=== PATIENT | male | born 1975 | race Caucasian/White ===

== ENCOUNTER 2018-10-06 19:14 | Emergency (ER) | payer SELFPAY ==
[2018-10-06 19:56] LABS: MEAN CORPUSCULAR HEMOGLOBIN 15.8 pg (28.0-34.0)
[2018-10-06 19:57] LABS: BASOPHILS % 0.2 % (0.0-1.5); EOSINOPHILS % 1.1 % (0.0-6.8); MONOCYTES % 4.2 % (0.0-11.0); NEUTROPHILS # 5.1 # k/uL (1.4-7.7)
[2018-10-06 20:00] LABS: eGFR (Non-African) > 60
--- NOTE | 2018-10-06 20:01 | ED Physician Documentation ---
General Adult - HISTORIAN Historian: patient, spouse - HPI Stated Complaint: shortness of breath, "fluttering" in chest Chief Complaint: General Adult (SOA/Palpitations) Additional Information: Patient is a 43-year-old male that presents to the ER with c/o feeling weak, difficult catching his breath, and palpitations. He states that symptoms started around 1 p.m. this afternoon. Patient states this evening he was sitting at [employer] (restaurant) and he got really hot- palpitations increased and he felt like he couldn't catch his breath. He denies any chest pain, nausea, vomiting or diarrhea. He use to drink heavily but quit 3 years ago, he chews tobacco, no illegal drug use. Patient looks pale/jaundice- states color is not normal- he is alert and oriented x 3. Patient later admits to having blood in his stool x 1 week (bright red blood)- mom is a nurse and states that his color has been like that for approx. 6 mths. Patient states that he has been taking quite a bit of Ibuprofen and his Colchicine over the last couple of weeks. Onset: hours Timing: still present Severity: mild Modifying Factors: was taken off BP meds a couple of months ago Further Comments: no - ROS CONST: weakness EYES/ENT: none CVS/RESP: shortness of breath GI/: none. denies: abdominal pain, problems urinating, vomiting, nausea, diarrhea, black stools MS/SKIN/LYMPH: none NEURO/PSYCH: denies: headache, dizziness - PAST HX Past History: hypertension Other History: other (GERD, GOUT) Surgeries/Procedures: other (tonsils) Immunizations: UTD Allergies/Adverse Reactions: Allergies Allergy/AdvReac Type Severity Reaction Status Date / Time No Known Allergies Allergy Verified 10/06/18 19:41 Home Medications: Ambulatory Orders Medication Instructions Recorded Colchicine [Mitigare] 1 tab PO DAILY 10/06/18 Omeprazole Magnesium [Prilosec] 1 cap PO DAILY 10/06/18 - SOCIAL HX Smoking History: chew Alcohol Use: heavy (quit 3 years ago) Drug Use: none - FAMILY HX Family History: No - VITAL SIGNS Vital Signs: Vital Signs Temp Pulse Resp BP Pulse Ox 98.1 F 102 H 18 186/71 99 10/06/18 19:32 10/06/18 19:32 10/06/18 19:32 10/06/18 19:32 10/06/18 19:32 Progress - Progress Progress: 20:12 Called [facility] to arrange transfer- they will call back 20:28 Dr. Kevin accepted at [facility]- patient will be going to Step Down ED Results Lab/Radiology - Orders Orders: ED Orders Category Date Time Status Continuous EKG monitoring Q30M Care 10/06/18 19:29 Active Continuous Pulse Oximetry Q30M Care 10/06/18 19:[address] IV Lock 1T Care 10/06/18 19:29 Active CHEST 2VIEW [RAD] Stat Exams 10/06/18 Ordered CBC/PLATELET/DIFF Routine Lab 10/06/18 19:30 Received CKMB Stat Lab 10/06/18 19:30 Received CMP Routine Lab 10/06/18 19:30 Received CREATINE KINASE Routine Lab 10/06/18 19:30 Received D DIMER Stat Lab 10/06/18 Ordered HEMOCCULT ED POC Stat Lab 10/06/18 Ordered TROPONIN I (cTnI) Stat Lab 10/06/18 19:30 Received Chem Sticks Med 10/06/18 19:46 Discontinued 1 each NOW ONE Oxygen Daily Oxygen 10/06/18 20:00 Ordered EKG WITH COMPARISON Stat Ther 10/06/18 19:29 Ordered General Adult Physical Exam - PHYSICAL EXAM GENERAL APPEARANCE: mild distress EENT: ENT inspection normal, COOKIE, pale conjunctivae, dry mucous membranes NECK: normal inspection, supple RESPIRATORY: chest non-tender, breath sounds normal CVS: heart sounds normal, tachycardia ABDOMEN: soft, normal bowel sounds, non-tender RECTAL: normal exam, normal rectal tone, heme negative stool BACK: normal inspection SKIN: jaundice, pallor EXTREMITIES: non-tender, normal range of motion NEURO: oriented X3, CN's nml as tested, motor nml, sensation nml, mood/affect nml, cognition normal Discharge Clincal Impression: GI bleeding, Anemia Referrals: Primary Doctor,No [Primary Care Provider] - 2 Days Condition: Stable Disposition: 02 XFER SHT-TRM HOSP Decision to Admit: NO Decision Time: 20:32 (Transfer to [facility])
[2018-10-06] MEDS: PANTOPRAZOLE SODIUM 80 MG in 0.9 % SODIUM CHLORIDE 100 ML IV ONE (21:00)
[2018-10-06 21:45] VITALS: BP 157/62
--- NOTE | 2018-10-07 05:38 | Diagnostic Imaging Report ---
LUCÍA BRUNER ED [facility] [id number] [facility] [address], [place]. [address] Report Submission Date: Oct 06, 2018 8:31:40 PM CDT Patient Study Name: SUSAN MARCANO Date: Oct 06, 2018 7:49:31 PM CDT Modality Type: DX Gender: M Description: CHEST 2VIEW : 75 Institution: [facility] Physician: LUCÍA BRUNER ED PA and lateral chest Clinical history: Shortness of breath. Weakness. Findings: Examination of the chest in PA and lateral views with no prior films for comparison demonstrates the lungs to be clear. The cardiovascular and mediastinal silhouettes are within normal limits. Bony thorax is intact. Impression: 1. Negative chest. Electronically signed on Oct 06, 2018 8:31:40 PM CDT by: Sai LYNN
== END 2018-10-06 21:10 | disposition short-term general hospital (02) ==
LOC: ED 19:14
DX: K92.2 Gastrointestinal hemorrhage, unspecified (principal); D64.9 Anemia, unspecified
CPT/HCPCS: 36415; 71046; 80053; 82272; 82550; 82553; 84484; 85025; 85379; 85610; 96374; 99285; S1016